=== PATIENT | female | born 1985 | race Caucasian/White ===

== ENCOUNTER 2016-05-15 16:11 | Emergency (ER) | payer OTHER ==
[2016-05-15 16:18] VITALS: BP 94/68; PULSE 57; RESP 18; TEMP 98.1; O2SAT 97
--- NOTE | 2016-05-15 16:23 | EDPHY ---
H & P Stated Complaint: mid back pain starting last night Time Seen by Provider: 05/15/16 16:23 - Personal History LMP (Females 10-55): 8-14 Days Ago Current Tetanus/Diphtheria Vaccine: Yes Current Tetanus Diphtheria and Acellular Pertussis (TDAP): Yes - Medical/Surgical History Hx Asthma: No Hx Chronic Respiratory Disease: No Hx Diabetes: No Hx Cardiac Disease: No Hx Renal Disease: Yes Hx Cirrhosis: No Hx Alcoholism: No Hx HIV/AIDS: No Hx Splenectomy or Spleen Trauma: No Other PMH: PMH: chronic kidney infection. PSH: polyps removal from colon. - Social History Smoking Status: Never smoked Constitutional: Initial Vital Signs Temperature (C) 36.7 C 05/15/16 16:16 Heart Rate 57 L 05/15/16 16:16 Respiratory Rate 18 05/15/16 16:16 Blood Pressure 94/68 L 05/15/16 16:16 O2 Sat (%) 97 05/15/16 16:16 O2 Delivery Mode Room Air Allergies/Adverse Reactions: ondansetron HCl [From Zofran (as hydrochloride)] Allergy (Verified 05/15/16 16: 15) tea tree Allergy (Verified 05/15/16 16:15) Home Medications: Medication Instructions Recorded Glucosamine 01/29/16 Klonopin 01/29/16 Vitamin B Complex 01/29/16 Hydrocodone/APAP 5/325 [[place] 1 - 2 each PO Q4-6PRN PRN #20 tab 05/15/16 5/325] Medical Decision Making ED Course/Re-evaluation: CHIEF COMPLAINT: Back pain, history of kidney infections HISTORY OF PRESENT ILLNESS: The patient is a 31 y/o female arriving with her at the referral of urgent care complaining of moderate back pain for the last day. She reports a history of recurrent kidney infections since childhood. Five years ago she required "emergency surgery to remove a stone that wasn't there" due to severe hydronephrosis. She then had a stent placed for a few days. A follow up CT determined she may have had an inflamed cyst sitting on the outside of her ureter. For the past 8-12 hours, she's had "miserable" lower back pain and nausea that has prevented her from sleeping. Her pain extends from her middle lumbar back up to her shoulder blades, but is not located midline along her spine. She says it "feels like someone is trying to rip my back out." She went on a short hike yesterday, but denies injury then , recent heavy lifting, or trauma. She denies urinary symptoms, but says she doesn't usually get them with her kidney infections. No fever. REVIEW OF SYSTEMS: A 10 point review of systems was performed and is negative with the exception of the elements mentioned in the history of present illness. PHYSICAL EXAM: HR, BP, O2 Sat, RR. Temp noted General Appearance: Alert, well hydrated, appropriate, and non-toxic appearing. Head: Atraumatic without scalp tenderness or obvious injury Eyes: Pupils equal, round, reactive to light and accommodation, EOMI, no trauma , no injection. Ears: Clear bilaterally, no perforation, normal landmarks Nose: Atraumatic, no rhinorrhea, clear. Throat: There is no erythema or exudates, no lesions, normal tonsils, mucus membranes moist. Neck: Supple, 2+ carotid upstroke, nontender, no lymphadenopathy. Respiratory: No retractions, no distress, no wheezes, and no accessory muscle use. Lungs are clear to auscultation bilaterally. Cardiovascular: Regular rate and rhythm, no murmurs, rubs, or gallops. Bilateral carotid, radial, dorsalis pedis, and posterior tibial pulses intact. Good capillary refill all extremities. Gastrointestinal: Abdomen is soft, nontender, non-distended, no masses, no rebound, no guarding, no peritoneal signs. Musculoskeletal: Right CVA tenderness. Normal active ROM of all extremities, atraumatic. Neurological: Alert, appropriate, and interactive. The patient has normal DTRs and non-focal cranial nerves, motor, sensory, and cerebellar exam. Skin: No rashes, good turgor, no nodules on palpation. Past medical history: Recurrent kidney infections Past surgical history: Emergency kidney surgery due to hydronephrosis and subsequent stent Family history: Noncontributory Social history: at bedside. DIAGNOSTICS/PROCEDURES/CRITICAL CARE TIME: Study: Ultrasound of the: Right kidney Indication: Back pain, hx kidney infections Results: US scan of the kidney was obtained. The results of the study are negative. The study was read by the radiologist, Dr. Miller. I viewed the images myself on the PACS system. DIFFERENTIAL DIAGNOSIS: The differential diagnosis for the patient's back pain included but was not limited to musculo-skeletal pain, epidural abscess, herniated disk, spinal fracture, and intra-abdominal causes including urinary system. MEDICAL DECISION MAKING: This is a 31 y/o female with a history of recurrent kidney infections presenting with a one-day history of lumbar back pain and nausea. She denies any urinary symptoms or fever. Her symptoms could be a recurrent infection or possibly musculoskeletal cause. She has had multiple abdominal CTs, so plan to avoid more radiation and will perform kidney ultrasound instead as well as UA. UA normal. Ultrasound is normal. Discussed results with the patient. She is comfortable using ibuprofen and Vicodin as needed for pain and following up with her PCP as needed. She will be discharged with return precautions and script for Vicodin. - Data Points Laboratory Results: 05/15/16 16:25 Urine Color PALE YELLOW Urine Appearance CLEAR Urine pH 6.0 (5.0-7.5) Ur Specific [place] 1.004 (1.002-1.030) Urine Protein NEGATIVE (NEGATIVE) Urine Ketones NEGATIVE (NEGATIVE) Urine Blood NEGATIVE (NEGATIVE) Urine Nitrate NEGATIVE (NEGATIVE) Urine Bilirubin NEGATIVE (NEGATIVE) Urine Urobilinogen NEGATIVE EU (0.2-1.0) Ur Leukocyte Esterase NEGATIVE (NEGATIVE) Ur Culture Indicated? NOT INDICATED (NI) Urine Glucose NEGATIVE (NEGATIVE) Departure - Departure Clinical Impression: Lumbar back pain Instructions: Acute Low Back Pain (ED) Additional Instructions: 1. Take Vicodin as prescribed when needed for pain. 2. Use 600mg ibuprofen every 6-8 hours for the next 2-3 days. You can also try a heating pad on sore areas. 3. Follow up with your primary care provider for symptoms not improved over the next 2-3 days. 4. Return to the ED for worsening of condition. Referrals: Leilani Marion MD [Doctor of Osteopathy] - As per Instructions Prescriptions: Hydrocodone/APAP 5/325 [[place] 5/325] 1 - 2 each PO Q4-6PRN PRN #20 tab PRN Reason: Pain, Moderate Report Scribed for: Tono Davis Report Scribed by: Makenzie Gregorio Date of Report: 05/15/16 Time of Report: 17:45
[2016-05-15 16:51] LABS: COLOR PALE YELLOW; LEUKOCYTE ESTERASE,URINE NEGATIVE (NEGATIVE); NITRITE,URINE NEGATIVE (NEGATIVE)
[2016-05-15] MEDS ORDERED: HYDROCOD/APAP 5/325 PREPACK#6 BTL TAKEHOME ONE (17:45)
--- NOTE | 2016-05-15 17:47 | US ---
Ultrasound Abdomen Retroperitoneum, Complete Clinical Indications: Abdominal and flank pain. History of urinary tract infection. Comparison: None. Findings: The right kidney measures 10.7 x 5.5 x 5 cm. The left kidney measures 10.4 x 5.8 x 4.5 cm . Both kidneys demonstrate no hydronephrosis, definite shadowing calculi, or perinephric fluid. Righ t renal cortical thickness 1.1 cm and left renal cortical thickness 1.1 cm. Images of the bladder demonstrate patent bilateral ureteral jets with color flow imaging. Prevoid brittany dder volume 26 mL. No shadowing bladder calculi. Impression: 1. No hydronephrosis. 2. No evidence of shadowing renal calculi or perinephric fluid. Findings and recommendations discussed with Emergency Department physician, Tono Davis MD at 1 7:45 hour, 05/15/2016. Final report concurs with initial preliminary interpretation.
== END 2016-05-15 17:57 | disposition home or self-care (01) ==
DX: M54.5 Low back pain (principal)

== ENCOUNTER 2017-04-17 09:08 | Emergency (ER) | payer OTHER ==
[2017-04-17 09:23] VITALS: BP 108/82; PULSE 55; RESP 12; O2SAT 95
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
== END 2017-04-17 10:04 | disposition home or self-care (01) ==
LOC: CED 09:08
DX: S00.03XA Contusion of scalp, initial encounter (principal); S16.1XXA Strain of muscle, fascia and tendon at neck level, initial encounter; V49.49XA Driver injured in collision with other motor vehicles in traffic accident, initial encounter; Y92.410 Unspecified street and highway as the place of occurrence of the external cause; Y99.8 Other external cause status; Y93.89 Activity, other specified

== ENCOUNTER 2017-04-18 18:27 | Emergency (ER) | payer OTHER ==
[2017-04-18] MEDS ORDERED: NS 1,000 ML IV ONE (19:45)
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
[2017-04-18 20:04] LABS: PLATELET COUNT 219 10^3/uL (150-400)
[2017-04-18 21:23] VITALS: BP 118/70; PULSE 67; RESP 18; TEMP 98.6; O2SAT 97
== END 2017-04-18 21:23 | disposition home or self-care (01) ==
DX: S06.0X9A Concussion with loss of consciousness of unspecified duration, initial encounter (principal); E86.9 Volume depletion, unspecified; V49.40XA Driver injured in collision with unspecified motor vehicles in traffic accident, initial encounter; Y92.411 Interstate highway as the place of occurrence of the external cause; Y93.89 Activity, other specified